=== PATIENT | female | born 1965 | race Caucasian/White ===

== ENCOUNTER 2020-03-07 09:34 | Outpatient (CLI) | payer OTHER, SELFPAY ==
--- NOTE | ~2020-03-07 | NM_ITS ---
EXAM: NM gastric emptying study DATE: 03/07/2020 14:25 INDICATION: Nausea and vomiting. TECHNIQUE: A gastric emptying study was performed using the methodology of Nayely SHERWOOD, et al. J Nucl Med 2007; 48:568-572. The patient was given a meal consisting of 2 scrambled eggs labeled with 1 mCi Tc-99m sulfur colloid, 2 slices of toast, two packages of jam, and approximately 120 mL of water. Si multaneous anterior and posterior 1-min images of the abdomen were obtained with the patient supine a t multiple time points over a total period of 4 hours. The geometric mean of anterior and posterior v iews was determined, and the percentage retention was calculated for each time point. COMPARISON: None. FINDINGS: Gastric retention of the radiotracer-labeled meal was 86%, 68%, and 43% at the 1-hour, 2-h our, and 4-hour time points, respectively. With this technique, apparent rapid gastric emptying is flores ggested by <30% gastric retention at 1 hour. Delayed gastric emptying is defined by gastric retention of >90% at 1 hour, >60% retention at 2 hours, or >10% retention at 4 hours. IMPRESSION: 1. Delayed gastric emptying. Reviewed, dictated and finalized at location A.
== END 2020-03-07 09:35 | disposition home or self-care (01) ==
PROVIDERS: Visit Provider Internal Medicine Gastroenterology
DX: R11.2 Nausea with vomiting, unspecified (principal); K30 Functional dyspepsia
CPT/HCPCS: 78264; A9541

== ENCOUNTER 2025-09-17 18:42 | Emergency (ER) | payer OTHER, SELFPAY ==
[2025-09-17 18:48] VITALS: BP 133/78; PULSE 88; RESP 16; TEMP 37.3; O2SAT 95
--- OUTSIDE RECORDS SUMMARY | 2025-09-17 18:48 | XMS_ITS | Data Portability ---
Author Organization [place] [facility], Main Office Address [address] [place] [address] Care Team Providers Care Radiology Supervisor Name Role Phone GIOVANA JO Referring Provider [phone] Assessment No assessment recorded. Plan of Treatment Reminders Order Date Submit Date Provider Last Modified By Organization Details Last Modified Time Details Appointments None recorded. Lab None recorded. Referral endocrinol ogy referral 2022 023 NORMA Reardon MD, [address],, [facility] [address], [place], [address], 3 17:45:23 Procedures None recorded. Surgeries None recorded. Imaging None recorded. Medication Orders Jardiance 25 mg tablet 2022 023 [facility], [address] [place] [address], [address], 3 17:34:23 glimepirid e 2 mg tablet 2022 023 [facility], [address] [place] [address], [address], 3 17:34:23 pioglitazo ne 30 mg tablet 2022 023 [facility], [address] [place] [address], [address], 3 17:34:47 Tresiba FlexTouch U-200 insulin 200 unit/mL (3 mL) subcutaneo us pen 2022 023 [facility], [address] [place] [address], [address], 3 17:35:55 Patient TargetsNo targets recorded. Patient InstructionsNo instructions recorded. Reason for Referral Endocrinology Referral for U ncontrolled type 2 diabetes mellitus Referring Physician: Lidia Epperson, Endocrinology, Encounter Date: 05/01/2023 Results Created Date Observation Date Name Description Value Unit Range Abnormal Flag Note LastModifiedBy Organization Detail LastModifiedTime Result Notes None recorded. Problems Name Problem SNOMED Code Status Onset Date Resolution Date Notes Provider Name and Address Organization Details Recorded Time Type 2 diabetes mellitus 28119231 Active 2017 Not Available [facility] 3 20:19:15 Uncontrolled type 2 diabetes mellitus 763564655 Active 2021 Not Available [facility] 3 20:19:15 Type 2 diabetes mellitus without complication 785195396 Active 2021 Not Available [facility] 3 20:19:15 Vitamin D deficiency 86351702 Active 2021 Not Available [facility] 3 20:19:15 Dyslipidemia 405236889 Active 2021 Not Available [facility] 3 20:19:15 Well controlled type 2 diabetes mellitus 417994218 Active 2022 Lidia Epperson MD [address] [place] [address], [phone] , [facility] [employer] [facility] 3 13:23:31 Problem Notes None recorded. Medical Equipment None Reported. Allergies Allergen ID Allergen Name Allergen Category Reaction Reaction Severity Criticality Documentation Date Start Date Code Code System Note Provider Name and Address Organization Details Recorded Time 38942 Product containin g penicilli n (product) medicatio n Not available Not available Not available 11/19/2022 09047 8001 SNOMED Not Available [facility] 3 20:20:22 Medications Name Sig Start Date Stop Date Status Note LastModified by Organization Details LastModified Time fluconazole 100 mg tablet 10/04 completed Not Available Not Available Not Available atorvastati n 40 mg tablet 06/18 completed Not Available Not Available Not Available atorvastati n 80 mg tablet active Not Available Not Available Not Available fluconazole 150 mg tablet 10/04 completed Not Available Not Available Not Available benzonatate 200 mg capsule 10/04 completed Not Available Not Available Not Available Balbir Levi 28 gauge 10/04 completed Not Available Not Available Not Available lovastatin 40 mg tablet 10/04 completed Not Available Not Available Not Available sertraline 100 mg tablet active Not Available Not Available Not Available clobetasol 0.05 % topical cream 10/04 completed Not Available Not Available Not Available metronidazo le 500 mg tablet 10/04 completed Not Available Not Available Not Available sulfamethox azole 800 mg-trimetho prim 160 mg tablet TAKE 1 TABLET BY MOUTH TWICE DAILY FOR 7 DAYS 10/04 completed Not Available Not Available Not Available omeprazole 40 mg capsule,del ayed release active Not Available Not Available Not Available glimepiride 2 mg tablet Take 2 tablets twice a day by oral route before meals for 90 days. active Not Available Not Available No t Available glimepiride 1 mg tablet Take 1 tablet twice a day by oral route before meals for 30 days. 06/02 completed Not Available Not Available Not Available ciprofloxac in 0.3 % eye drops active Not Available Not Available No t Available meclizine 25 mg tablet 10/04 completed Not Available Not Available Not Available benzonatate 100 mg capsule 06/18 completed Not Available Not Available Not Available nortriptyli ne 10 mg capsule 10/04 completed Not Available Not Available Not Available tacrolimus 0.1 % topical ointment active Not Available Not Available Not Available glimepiride 4 mg tablet 06/18 completed Not Available Not Available Not Available losartan 25 mg tablet active Not Available Not Available No t Available omeprazole 20 mg capsule,del ayed release 10/04 completed Not Available Not Available Not Available hydrochloro thiazide 25 mg tablet active Not Available Not Available No t Available ergocalcife rol (vitamin D2) 1,250 mcg (50,000 unit) capsule Take 1 capsule every week by oral route in the morning for 90 days. active Not Available Not Available No t Available budesonide DR - ER 3 mg capsule,del ayed,extend ed release 01/14 /2022 completed Not Available Not Available Not Available lovastatin 20 mg tablet 03/28 completed Not Available Not Available Not Available methylpredn isolone 4 mg tablets in a dose pack 10/04 completed Not Available Not Available Not Available albuterol sulfate HFA 90 mcg/actuati on aerosol inhaler INHALE 2 PUFFS BY MOUTH EVERY 4 HOURS NEEDED active Not Available Not Available No t Available pioglitazon e 30 mg tablet Take 1 tablet every day by oral route in the morning for 90 days. active Not Available Not Available No t Available spironolact one 50 mg tablet Take 1 tablet every day by oral route in the morning for 30 days. active Not Available Not Available No t Available calcipotrie ne 0.005 % topical ointment active Not Available Not Available Not Available Antifungal (miconazole ) 2 % topical cream APPLY TO THE AA BID IN THE MORNING AND EVENING 06/18 completed Not Available Not Available Not Available clobetasol 0.05 % shampoo 10/04 completed Not Available Not Available Not Available nitrofurant oin monohydrate /macrocryst als 100 mg capsule 10/04 completed Not Available Not Available Not Available hydrochloro thiazide 08/02 completed Not Available Not Available Not Available FreeStyle Lite Meter kit UTD 10/04 completed Not Available Not Available Not Available FreeStyle Lite Strips 10/04 completed Not Available Not Available Not Available Lantus Solostar U-100 Insulin 100 unit/mL (3 mL) subcutaneou s pen 08/02 completed Not Available Not Available Not Available Lite Touch Insulin Pen Tensed 31 gauge x 5/16 active Not Available Not Available Not Available Otezla 30 mg tablet active Not Available Not Available No t Available Tanzeum 50 mg/0.5 mL subcutaneou s pen injector 08/02 completed Not Available Not Available Not Available Jardiance 10 mg tablet AT THE START OF THERAPY TAKE 1 TABLET DAILY IN THE MORNING FOR 7 DAYS THEN INCREASE TO 25 MG TABLET DAILY THEREAFTE R 10/04 completed Not Available Not Available Not Available Jardiance 25 mg tablet TAKE 1 TABLET BY MOUTH EVERY DAY IN THE MORNING 2022 active Not Available Not Available Not Avai lable Trulicity 1.5 mg/0.5 mL subcutaneou s pen injector INJECT 1.5 MG (0.5 ML) UNDER THE SKIN EVERY WEEK WITH A MEAL 06/18 completed Not Available Not Available Not Available Trulicity 0.75 mg/0.5 mL subcutaneou s pen injector Inject 0.5 mL every week by subcutane ous route with meals for 30 days. 08/02 completed Not Available Not Available Not Available Tresiba FlexTouch U-200 insulin 200 unit/mL (3 mL) subcutaneou s pen Inject 40 units every day by subcutane ous route at bedtime for 90 days. 2022 active Not Available Not Available Not Avai lable Duobrii 0.01 %-0.045 % lotion active Not Available Not Available Not Available FreeStyle Alis 2 Sensor kit active Not Available Not Available N ot Available Trulicity 3 mg/0.5 mL subcutaneou s pen injector 10/04 completed Not Available Not Available Not Available Mounjaro 2.5 mg/0.5 mL subcutaneou s pen injector Inject 2.5 mg every week by subcutane ous route for 28 days. active Not Available Not Available No t Available Vitals Date Recorded Body height Body mass index (BMI) Body weight Heart rate Systolic And Diastolic Provider Name and Address Organization Details Last Updated DateTime 05/01/2023 162.56 cm 34.5 kg/m2 52491.78 g 74 /min 128/78 mm[Hg] Tasia Leroy [place] [facility] [place] [facility] [facility] 05/01/2023 17:06:24 Date Recorded Body mass index (BMI) Body height Oxygen saturation Heart rate Body temperature Body weight Systolic And Diastolic Provider Name and Address Organization Details Last Updated DateTime 2 33.8 kg/m2 162.56 cm 98 % 66 /min 98 [degF] 90801.7 g 105/75 mm[Hg] Not Available [facility] 3 20:19:05 Date Recorded Body mass index (BMI) Body height Oxygen saturation Heart rate Body temperature Body weight Systolic And Diastolic Provider Name and Address Organization Details Last Updated DateTime 1 34.3 kg/m2 162.56 cm 92 % 74 /min 98 [degF] 96997.4 7 g 120/82 mm[Hg] Not Available [facility] 20:19:05 Social History Question Answer Notes LastModified by Organizat ion Details LastModified Time Tobacco Smoking Status Former Smoker Not Available [facility] 11/19/2022 20:18:40 Do You Have An Advance Directive? No [id number] Information not available 11/19/2022 What Is Your Level Of Caffeine Consumption? Moderate [id number] Information not available 11/19/2022 In The 14 Days Before Symptom Onset, Have You Had Close Contact With A Laboratory-confirm ed COVID-19 While That Case Was Ill? No [id number] Information not available 11/19/2022 In The 14 Days Before Symptom Onset, Have You Had Close Contact With A Person Who Is Under Investigation For COVID-19 While That Person Was Ill? No [id number] [id number] Information not available 11/19/2022 What Type Of Diet Are You Following? REGULAR [id number] Information not available 11/19/2022 What Is The Highest Grade Or Level Of School You Have Completed Or The Highest Degree You Have Received? [id number] [id number] Information not available 11/19/2022 When Did You Quit Smoking? 6-10yearssinc elastcigarett e [id number] Information not available 11/19/2022 Do You Have A Medical Power Of Manager Spa? No [id number] Information not available 11/19/2022 What Is Your Relationship Status? [id number] Information not available 11/19/2022 Do You Use Your Seat Belt Or Car Seat Routinely? Yes [id number] 1301 Information not available 11/19/2022 Have You Recently Traveled Abroad? No [id number] Information not available 11/19/2022 Do You Have Any Dietary Restrictions? No [id number] Information not available 11/19/2022 Sex: Female Functional Status Question Answer Note LastModified by Organizat ion Details LastModified Time Do you use any illicit or recreational drugs? No [id number] Information not available 11/19/2022 What is your level of alcohol consumption? 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 [id number] Information not available 11/19/2022 Family History Relationship Description Onset Age of this Age Resolved Age Notes LastModified by Organization Details LastModified Time Mother Malignant neoplasm of breast [id number] Not available 11/19/2022 20:18:46 Father Kidney disease [id number] Not available 11/19/2022 20:18:46 Medical History Condition Response DIABETES, TYPE Y Gynecological HistoryNo gynecological history recorded. Obstetrics History GPAL:G 0 P 0 0 0 0 Past Encounters Encounter ID Performer Location Encounter Start Date Encounter Closed Date Diagnosis/Indication Diagnosis SNOMED-CT Code Diagnosis ICD10 Code Diagnosis IMO Codes Diagnosis Note [id number] Lidia Epperson MD [facility] [place] [address] [place] [address] 06/18/2021 00:00:00 06/18/2021 18:26:42 [id number] Lidia Epperson MD [facility] [place] [address] [place] [address] 10/04/2021 00:00:00 10/04/2021 17:26:01 [id number] [facility] [place] [address] [place] [address] 06/02/2022 00:00:00 06/02/2022 18:33:28 [id number] Lidia Epperson MD [facility] [place] [address] [place] [address] 05/01/2023 16:55:59 05/04/2023 14:13:36 Uncontrolled type 2 diabetes mellitus 080313867 E11.65 A1C of 8.9% down from 9.2%- she started mounjaro but this is aggrevatin g her fullness/n ausea due to hx of gastropare sis- she was advised to stop mounjaro. She cannot tolerate metformin due to GI upset- she was encouraged to consider an insulin pattern duplicator - actos being really the only optional therapy aside from going on natural pattern duplicator s. She has no hx of CHF- will trial on 30 mg daily. She is aware to look for leg swelling and shortness of breath as possible side effects and reach out to notify us. Restart jardiance and glimepirid e scale twice daily along with tresiba 40 units at bedtime and she is aware of self titration to maintain fasting glucose of 90-120 mg/dL. Refill freestyle alis 2 as patient compliant and using on consistent basis. Refer for endocrinol ogy due to my resignatio n. Spent up to 30 minutes preparing to see the patient (eg, review of tests), obtaining and/or reviewing separately obtained history, performing a medically appropriat e examinatio n and evaluation , counseling and educating the patient, ordering medication s, tests, along with documentin g clinical informatio n in the electronic health record, independen tly interpreti ng results and communicat ing results to the patient. Patient can be followed by PCP - she/he is aware of my resignatio n and last day of July 03. If needed his/her PCP can refer patient to another endocrinol ogist in the area. All questions /concerns answered and refills necessary at visit today. Health Concerns Section Related Observation LastModified by Organization Detai ls LastModified Time None Recorded Concern Status LastModified by Organization Details LastModified Time None Recorded Advance Directives Directive N: Payers Insurance Date Sequence Insurance Name Policy Number Policy Santana Covered Member ID Santana Member ID Guarantor Name 10/02/2023 1 [facility] Bonnie Brandt [id number] Bonnie Brandt Notes Date Note Type Note Provider Name and Address Organization Details Recorded Time 05/01/2023 text/html ROS as noted in the HPI 57 yo female comes in for follow up in management of uncontrolled type 2 DM (A1C of 8.9% down from 9.2%), dyslipidemia last seen in May 2022 at that time we had patient continue on tresiba 40 units at bedtime and patient aware to increase by 4 units every 4 days until fasting glucose 90-130 mg/dL. We had patient continue glimepiride 2 mg BID, jardiance 25 mg daily, and freestyle cgm. We started mounjaro. we continued statin and vitamin D 3 3000 IU daily. She was given mounjaro at her last visit- she is concerned to take this due to gastroparesis and she gets sick from these medications. She started taking the mounjaro 4 weeks ago. She has more fullness and nausea. She stopped the jardiance and her sugars are running 97% in range and 3% high. She was initially on glimepiride in morning, tresiba at night and jardiance- this was not helping her glucose - her sugars would be over 300 mg/dL and closer to 400 mg/dL. She stopped the jardiance and started mounjaro 2.5 mg weekly. She cannot take metformin as this made her severely ill. She had gastric study close to 3 years ago confirming gastroparesis. labs from 04/20/23:146/220/43/6 7a1c 8.9%TSH of 2.110 uIU/mlFT4 of 1.05 ng/dLglucose 137 mg/dLLFT normalCr normalmicroalb not provided Lidia Epperson MD [address] [facility], [facility] [address], [place], [address], [place] [facility] 05/01/2023 18:00:55 OBGyn Episode No OBEpisode recorded.
--- OUTSIDE RECORDS SUMMARY | 2025-09-17 18:48 | XMS_ITS | Encounter Summary ---
Author Organization [facility] Address [address] [place] [address] Care Team Providers Care Heat Treatment Technician Name Role Phone Femi Christina DO Primary Care Provider + Encounter Details Date Type Department Care Team (Late Contact Info) Description 09/25/2023 MyChart Message Enc [facility] Family & Internal Medicine [facility] [address] [place] [address] Femi Christina DO [address] [place], [place] [id number] Referral. Social History Tobacco Use Types Packs/Day Years Used Date Smoking Tobacco: Former Cigarettes 1 4 1 09/27/2010 - 07/28/2015 Smokeless Tobacco: Never Alcohol Use Standard Drinks/Week Comments Not Currently 0 (1 standard drink = 0.6 oz pur e alcohol) AUDIT-C Answer Date Recorded Frequency of Alcohol Consumption Never 07/28/2019 Average Number of Drinks Not on file 019 Frequency of Binge Drinking Not on file 03/2019 PHQ-2 Answer Date Recorded Patient Health Questionnaire-2 Score 0 11/05/2022 Comments No Sex and Gender Information Value Date Recorded Sex Assigned at Female 02/08/2025 3:21 PM CDT Legal Sex Female 11:28 AM GEOLOGICAL SPECIALIST Gender Identity Female 02/08/2025 3:21 PM CDT Sexual Orientation Not on file 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 Family & Internal Medicine - [place] [address] [place] [address] Femi Christina DO [facility] [place] [address] documented as of this encounter Visit Diagnoses Not on filedocumented in this encounter Additional Health Concerns Assessment Noted Time PHQ-9 Depression Total Score: 0 11/05/19 23 2:23 PM GEOLOGICAL SPECIALIST documented as of this encounter Care Teams Heat Treatment Technician Relationship Specialty Start Date End Date Femi Christina DO [address] [place] [address] PCP - General FAMILY PRACTICE 07/28/19 documented as of this encounter
--- OUTSIDE RECORDS SUMMARY | 2025-09-17 18:48 | XMS_ITS | Encounter Summary ---
Author Organization [facility] Address [address] [place] [address] Care Team Providers Care Wire Steward Name Role Phone Femi Christina DO Primary Care Provider + Encounter Details Date Type Department Care Team (Late Contact Info) Description 01/30/2020 Vidablehart Message Enc [facility] Internal [facility] [address] [place] [address] Femi Christina DO [facility] [place], [place] [phone] Referral Request Social History Tobacco Use Types Packs/Day Years Used Date Smoking Tobacco: Former Cigarettes 1 4 1 09/27/2010 - 07/28/2015 Smokeless Tobacco: Never Alcohol Use Standard Drinks/Week Comments No 0 (1 standard drink = 0.6 oz pur e alcohol) AUDIT-C Answer Date Recorded Frequency of Alcohol Consumption Never 07/28/2019 Average Number of Drinks Not on file 019 Frequency of Binge Drinking Not on file 03/2019 PHQ-2 Answer Date Recorded PHQ-2 Score 0 09/29/2019 Comments Unknown Sex and Gender Information Value Date Recorded Sex Assigned at Female 02/08/2025 3:21 PM CDT Legal Sex Female 11:28 AM OTORHINOLARYNGOLOGIST Gender Identity Female 02/08/2025 3:21 PM CDT Sexual Orientation Not on file documented as of this encounter Plan of Treatment Upcoming Encounters Date Type Department Care Team (Late Contact Info) Description 02/27/2026 9:00 AM CDT Office Visit [facility] & Internal Medicine - [place] [id number] [place] [address] Femi Christina DO [address] [place] [address] documented as of this encounter Visit Diagnoses Not on filedocumented in this encounter Additional Health Concerns Assessment Noted Time PHQ-9 Depression Total Score: 2 09/29/19 20 10:29 AM OTORHINOLARYNGOLOGIST documented as of this encounter Care Teams Wire Steward Relationship Specialty Start Date End Date Femi Christina DO [address] [place] [address] PCP - General FAMILY PRACTICE 07/28/19 documented as of this encounter
--- OUTSIDE RECORDS SUMMARY | 2025-09-17 18:48 | XMS_ITS | Encounter Summary ---
Author Organization [facility] Address [address] [place] [address] Care Team Providers Care Convenience Recycle Center Tech Name Role Phone Femi Christina DO Primary Care Provider + Encounter Details Date Type Department Care Team (Late st Contact Info) Description 10/31/2022 Zoom Telephonicst Message Enc [facility] Family & Internal Medicine [facility] [address] [place] [phone] Femi Christina DO [address] [place], [place] [phone] Labs. 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 No other labs needed; will obtain labs prior to appointment later this year. CTOR SPORTS documented in this encounter Plan of Treatment Upcoming Encounters Date Type Department Care Team (Late st Contact Info) Description 02/27/2026 9:00 AM CDT Office Visit [facility] Family & Internal Medicine - [address] [phone] Femi Christina DO [address] [place] [address] documented as of this encounter Visit Diagnoses Not on filedocumented in this encounter Additional Health Concerns Assessment Noted Time PHQ-9 Depression Total Score: 0 04/04/20 21 9:33 AM CDT documented as of this encounter Care Teams Convenience Recycle Center Tech Relationship Specialty Start Date End Date Femi Christina DO [address] [place] [address] PCP - General FAMILY PRACTICE 07/28/19 documented as of this encounter
--- OUTSIDE RECORDS SUMMARY | 2025-09-17 18:48 | XMS_ITS | Encounter Summary ---
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 No / Unsure 05/01/2021 9:06 AM CDT documented as of this encounter Plan of Treatment Upcoming Encounters Date Type Department Care Team (Late st Contact Info) Description 02/27/2026 9:00 AM CDT Office Visit [facility] Family & Internal Medicine [address] [phone] Femi Christina DO [address] [place] [address] documented as of this encounter Visit Diagnoses Not on filedocumented in this encounter Additional Health Concerns Assessment Noted Time PHQ-9 Depression Total Score: 0 04/04/20 21 9:33 AM CDT documented as of this encounter Care Teams Inspector Boiler Relationship Specialty Start Date End Date Femi Christina DO [address] [place] [address] PCP - General FAMILY PRACTICE 07/28/19 documented as of this encounter
--- OUTSIDE RECORDS SUMMARY | 2025-09-17 18:48 | XMS_ITS | Encounter Summary ---
Author Organization [facility] Address [address] [place] [address] Care Team Providers Care Back Wedger Name Role Phone Femi Christina DO Primary Care Provider + Encounter Details Date Type Department Care Team (Late st Contact Info) Description 04/14/2022 PTS Consultinghart [address] Enc [facility] Family & Internal Medicine [facility] [address] [place] [phone] Femi Christina DO [address] [place], [place] [phone] Medication and labs. 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 Can fill for 1 month, but that is all as pt hasn't been seenin almost a year. documented in this encounter Plan of Treatment Upcoming Encounters Date Type Department Care Team (Late st Contact Info) Description 02/27/2026 9:00 AM CDT Office Visit [facility] Family & Internal Medicine - [address] [phone] Femi Christina DO [facility] [place] [address] documented as of this encounter Visit Diagnoses Not on filedocumented in this encounter Additional Health Concerns Assessment Noted Time PHQ-9 Depression Total Score: 0 04/04/20 21 9:33 AM CDT documented as of this encounter Care Teams Back Wedger Relationship Specialty Start Date End Date Femi Christina DO [address] [place] [address] PCP - General FAMILY PRACTICE 07/28/19 documented as of this encounter
--- OUTSIDE RECORDS SUMMARY | 2025-09-17 18:48 | XMS_ITS | Encounter Summary ---
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
--- OUTSIDE RECORDS SUMMARY | 2025-09-17 18:48 | XMS_ITS | Encounter Summary ---
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 Toro with a new one for Dr. Groves for later date if this is able to be done. documented in this encounter Plan of Treatment Upcoming Encounters Date Type Department Care Team (Late st Contact Info) Description 02/27/2026 9:00 AM CDT Office Visit [facility] Family & Internal Medicine - [place] [address] [place] [address] Femi Christina DO [address] [place] [address] documented as of this encounter Visit Diagnoses Not on filedocumented in this encounter Additional Health Concerns Assessment Noted Time PHQ-9 Depression Total Score: 2 09/29/19 20 10:29 AM HEAD CONTROL CLERK documented as of this encounter Care Teams Route Jumper Relationship Specialty Start Date End Date Femi Christina DO [address] [place] [address] PCP - General FAMILY PRACTICE 07/28/19 documented as of this encounter
--- OUTSIDE RECORDS SUMMARY | 2025-09-17 18:48 | XMS_ITS | Encounter Summary ---
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 No / Unsure 04/04/2021 9:06 AM CDT documented as of this encounter Plan of Treatment Upcoming Encounters Date Type Department Care Team (Late st Contact Info) Description 02/27/2026 9:00 AM CDT Office Visit [facility] Family & Internal Medicine [address] [phone] Femi Christina DO [address] [place] [phone] documented as of this encounter Visit Diagnoses Not on filedocumented in this encounter Additional Health Concerns Assessment Noted Time PHQ-9 Depression Total Score: 0 04/04/20 21 9:33 AM CDT documented as of this encounter Care Teams Orchard Worker Relationship Specialty Start Date End Date Femi Christina DO [address] [place] [address] PCP - General FAMILY PRACTICE 07/28/19 documented as of this encounter
--- OUTSIDE RECORDS SUMMARY | 2025-09-17 18:48 | XMS_ITS | Clinical Summary ---
Author Organization [facility] Address [address] [place] [address] Care Team Providers Care Hospital Clinic Assistant Name Role Phone Femi Christina Bing CASE Primary Care Provider + Allergies Active Allergy Reactions Criticality Noted Date Comments Metformin Diarrhea Low 07/31/2017 Penicillins Nausea and Vomiting,Nausea Only,Rash,Vomiting,Unkno wn Medium 01/28/2017 Reaction: rash, nausea, vomiting, , Medications Lancets (FREESTYLE) lancetsIndications :Type 2 diabetes mellitus without complication, with long-term current use of insulin ([facility]/HCC HHS/HCC) 1 each by Other route 2 (two) times daily with meals. 200 each 1 05/16/20 20 Active Insulin Pen Needle (PEN NEEDLES) 31G X 5 MM Misc BD Ultra-Fine Short Pen Needle 31 gauge x 5/16 Active Blood Glucose Monitoring Suppl (FREESTYLE LITE) Device FreeStyle Lite Meter kit UTD Active DUOBRII 0.01-0.045 % Lotion 07/27/20 20 Active clobetasol 0.05 % cream Active Clobetasol Propionate 0.05 % Shampoo Active calcipotriene 0.005 % ointment Act lynne aspirin EC (ECOTRIN) 81 MG tablet Take 1 tablet (81 mg total) by mouth daily. Active JARDIANCE 25 MG tabletIndications: Uncontrolled type 2 diabetes mellitus with hyperglycemia (CMS/HCC HHS/HCC) TAKE 1 TABLET DAILY 90 tablet 1 01/16/20 23 Active insulin degludec (TRESIBA) 200 UNIT/ML injection (PEN) Inject 40 Units into the skin daily. 01/18/20 24 Active HUMIRA, 2 PEN, 40 MG/0.8ML injection Inject 0.8 mLs (40 mg total) into the skin every 14 (fourteen) days. 08/06/20 24 Active metoclopramide (REGLAN) 10 MG tabletIndications: Gastroparesis Take 0.5 tablets (5 mg total) by mouth 4 (four) times daily. 120 tablet 09/30/19 25 Active Continuous Glucose Sensor (FREESTYLE MARAH 3 SENSOR) MiscIndications:Un controlled type 2 diabetes mellitus with hyperglycemia (CMS/HCC HHS/HCC),Diabetic gastroparesis (CMS/HCC HHS/HCC) Check blood sugars before emeals and fasting daily as well as prn 6 each 01/21/20 25 Active glimepiride (AMARYL) 4 MG tablet Take 1 tablet (4 mg total) by mouth 2 (two) times daily. 09/23/19 25 Active tacrolimus (PROTOPIC) 0.1 % ointment tacrolimus 0.1 % topical ointment Active omeprazole (PRILOSEC) 40 MG capsuleIndications :Gastroesophageal reflux disease, unspecified whether esophagitis present TAKE 1 CAPSULE DAILY 90 capsule 3 04/11/20 25 Active losartan (COZAAR) 25 MG tabletIndications: Essential hypertension TAKE 1 TABLET DAILY 90 tablet 3 05/24/20 25 Active sertraline (ZOLOFT) 100 MG tabletIndications: Current mild episode of major depressive disorder without prior episode TAKE 1 TABLET DAILY 90 tablet 3 07/03/20 25 Active atorvastatin (LIPITOR) 80 MG tabletIndications: Hyperlipidemia, unspecified hyperlipidemia type TAKE 1 TABLET NIGHTLY AT BEDTIME 90 tablet 3 08/01/20 25 Active hydroCHLOROthiazid e (HYDRODIURIL) 25 MG tabletIndications: Primary hypertension TAKE 1 TABLET EVERY MORNING 90 tablet 3 08/01/20 25 Active Continuous Glucose Sensor (FREESTYLE MARAH 3 SENSOR) Misc Change sensor every 15 days 02/21/20 25 Active Continuous Blood Gluc Dyeing Machine Back Tender (FREESTYLE MARAH 3 READER) DeviceIndications: Uncontrolled type 2 diabetes mellitus with hyperglycemia (CMS/HCC HHS/HCC),Diabetic gastroparesis (CMS/HCC HHS/HCC) Check blood sugars before meals and fasting daily as well as prn 1 each 1 10/16/19 24 025 Discontin ued(Dupli naz Med) semaglutide (OZEMPIC, 0.25 OR 0.5 MG/DOSE,) 2 MG/3ML injection (PEN)Indications:D iabetes Mellitus Inject 0.25 mg into the skin every 7 days. Indications: Diabetes 3 mL 02/09/20 25 025 Discontin ued(Error ) Active Problems Problem Noted Date Diagnosed Date Class 2 severe obesity with serious comorbidity and body mass index (BMI) of 35.0 to 35.9 in adult 11/03/2023 Overview (02/05/2024): Last Assessment & Plan: Counseled on healthy lifestyle habits To work on healthy fat loss goal Dyslipidemia 06/02/2022 Vitamin D deficiency 05/08/2022 Uncontrolled type 2 diabetes mellitus 05/05/2022 Diabetic gastroparesis 04/04/2021 Psoriasis 07/28/2019 Hypertension associated with type 2 diabetes josselyn litus 09/24/2014 Overview (02/05/2024): Overview: Hypertension Hypertension Last Assessment & Plan: Chronic, well controlled Continue losartan and hydrochlorothiazide Type 2 diabetes mellitus wit hout complication, with long-term current use of insulin 02/04/2014 Overview (07/28/2019): Overview: DMII WO CMP NT ST UNCNTR Premenstrual tension syndrome 02/04/2014 Overview (04/04/2021): PMS (premenstrual syndrome) Pure hypercholesterolemia 02/04/2014 Overview (04/04/2021): PURE HYPERCHOLESTEROLEM Iron deficiency anemia, unspecified 08/03/2013 Hyperlipidemia associated with type 2 diabetes m willis 04/06/2013 Overview (02/05/2024): Overview: Hyperlipidemia Hyperlipidemia Last Assessment & Plan: Continue statin therapy GERD (gastroesophageal reflux disease) Resolved Problems Problem Noted Date Diagnosed Date Resolved Date Depression, unspecified depression type 07/28/2019 04/04/2021 History of nicotine dependence 07/19/2013 04/04/2021 Encounters Date Type Department Care Team Description 09/11/2025 [employer] Message Enc [facility] Multispecialty Care - [address] [place] [phone] Carmela, [facility] Provider GI Referral 08/31/2025 Scan [facility] HEALTH INFO SRVCS Scanned, [facility] 08/29/2025 9:20 AM PRODUCT SAFETY TEST ENGINEER Office Visit [facility] Family Internal [address] [phone] Femi Christina DO Diabetes (3 month follow up. No concerns. ) 08/29/2025 Scan MG HEALTH INFO SRVCS Scanned, [facility] 08/29/2025 Telephone [facility] Family Internal [address] [phone] Femi Christina DO Lab Order 08/29/2025 Travel 07/14/2025 Results Follow-Up [facility] Internal [address] [phone] Herlinda Kramer H, APNP ALBUMIN URINE RANDOM W/CREATININE, CBC W/DIFF AUTOMATED, COMPREHENSIVE METABOLIC PANEL, Additional followed-up results: 3 07/11/2025 Telephone [facility] Family Internal [address] [phone] Femi Christina DO Lab Order from Last 3 Months Immunizations Immunization Administration Dates Next Due Pneumococcal (Pneumovax 23) 07/28/2019 Tdap (Generic) 01/25/2015 Family History Medical History Relation Comments Cancer Father skin Hypertension Father Kidney Disease Father He is currently doing dialysis Arthritis Mother Cancer Mother breast Early Hearing Loss Mother Hypertension Mother Relation Status Comments Father Mother Social History Tobacco Use Types Packs/Day Years Used Date Smoking Tobacco: Former Cigarettes 1 4 1 09/27/2010 - 07/28/2015 Smokeless Tobacco: Never Tobacco Cessation:Counseling Given: Yes Alcohol Use Standard Drinks/Week Comments Not Currently 0 (1 standard drink = 0.6 oz pur e alcohol) AUDIT-C Answer Date Recorded Frequency of Alcohol Consumption Never 07/28/2019 Average Number of Drinks Not on file 019 Frequency of Binge Drinking Not on file 03/2019 PHQ-2 Answer Date Recorded Patient Health Questionnaire-2 Score 0 02/08/2025 Comments No Sex and Gender Information Value Date Recorded Sex Assigned at Female 02/08/2025 3:21 PM CDT Legal Sex Female 11:28 AM PRODUCT SAFETY TEST ENGINEER Gender Identity Female 02/08/2025 3:21 PM CDT Sexual Orientation Not on file 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 Not on file Not on file Last Filed Vital Signs Vital Sign Reading Time Taken Comments Blood Pressure 110/64 08/29/2025 9:46 AM PRODUCT SAFETY TEST ENGINEER Pulse 89 08/29/2025 9:46 AM PRODUCT SAFETY TEST ENGINEER Temperature 36.3 C (97.4 F) 08/29/2025 9:46 AM PRODUCT SAFETY TEST ENGINEER Respiratory Rate 16 08/29/2025 9:46 AM PRODUCT SAFETY TEST ENGINEER Oxygen Saturation 94% 08/29/2025 9:46 AM PRODUCT SAFETY TEST ENGINEER Inhaled Oxygen Concentration - - Weight 96 kg (211 lb 11.2 oz) 08/29/2025 9:46 AM PRODUCT SAFETY TEST ENGINEER Height 161.3 cm (5' 3.5) 08/29/2025 9:46 AM PRODUCT SAFETY TEST ENGINEER Body Mass Index 36.91 08/29/2025 9:46 AM PRODUCT SAFETY TEST ENGINEER Plan of Treatment Upcoming Encounters Date Type Department Care Team (Late st Contact Info) Description 02/27/2026 9:00 AM CDT Office Visit [facility] Family & Internal Medicine - [address] [phone] Femi Christina, [address] [place] [phone] Health Maintenance Due Date Last Done Comments Cervical Cancer Screening Pap Smear (Age 30 to 64) Every 3 Years 1967 Hepatitis B Vaccines (1 of 3 - 19+ 3-dose series) 1986 Cervical Cancer Screening Pap with HPV Testing (Age 30 to 64) Every 5 Years 1997 Mammogram Screening 2007 Annual Physical 07/28/2020 07/28/2019 Colorectal Cancer Screening Colonoscopy (10 Years) 11/27/2023 11/26/2018 Hemoglobin A1C 08/11/2025 02/08/2025, 07/22, 02/05/2024, Additional history exists Diabetes: Retinopathy Eye Exam 09/29/2025 Postponed from 1985 (Awaiting Documentation) Cervical Cancer Screening with HPV 02/08/2026 Postponed from 1997 (Going to Outside Clinic) DTaP, Tdap and Td Vaccines (2 - Td or Tdap) 02/08/2026 01/25/2015 Postponed from 01/25/2025 (Patient Refused) Pneumococcal Vaccine: 50+ Years (2 of 2 - PCV) 02/08/2026 07/28/2019 Postponed from 07/28/2020 (Patient Refused) Kidney Health Evaluation 07/13/2026 07/13/2025 Lipid Panel 07/13/2026 07/13/2025, 01/20, 06/24/2023, Additional history exists COVID-19 Vaccine (2 - Faith risk series) 08/29/2026 11/27/2020 Postponed from 12/25/2020 (Patient Refused) Influenza Adult (#1) 2026 Postpon ed from 06/21/2025 (Patient Refused) Zoster Vaccines (1 of 2) 08/29/2026 Pos tponed from 1986 (Going to Outside Clinic) Hepatitis C Completed 06/24/2023 PHQ-2 (Physician [place]) Completed 02/08/2025 Hepatitis A Vaccines Aged Out No long er eligible based on patient's age to complete this topic Meningococcal B Vaccine Aged Out No l onger eligible based on patient's age to complete this topic Meningococcal Vaccine Aged Out No valdemar yash eligible based on patient's age to complete this topic RSV Immunizations Under 20 Months Aged Out No longer eligible based on patient's age to complete this topic Procedures Procedure Name Priority Date/Time Associated Diagnosis Comments COLLECTION VENOUS BLOOD VENIPUNCTURE Routine 08/29/2025 10:00 AM PRODUCT SAFETY TEST ENGINEER Elevated liver enzymes Polycythemia VITAMIN D, 25 OH Routine 07/13/2025 9:00 AM CDT LIPID PANEL Routine 07/13/2025 9:00 AM CDT Type 2 diabetes mellitus with other circulatory complication, with long-term current use of insulin ([facility] HHS/HCC) Hyperlipidemia, unspecified hyperlipidemia type Screening for lipid disorders Screening for endocrine, metabolic and immunity disorder Annual physical exam TSH W/REFLEX Routine 07/13/2025 9:00 AM CDT Type 2 diabetes mellitus with other circulatory complication, with long-term current use of insulin ([facility] HHS/HCC) Hyperlipidemia, unspecified hyperlipidemia type Screening for lipid disorders Screening for endocrine, metabolic and immunity disorder Annual physical exam COMPREHENSIVE METABOLIC PANEL Routine 07/13/2025 9:00 AM CDT Type 2 diabetes mellitus with other circulatory complication, with long-term current use of insulin ([facility] HHS/HCC) Hyperlipidemia, unspecified hyperlipidemia type Screening for lipid disorders Screening for endocrine, metabolic and immunity disorder Annual physical exam CBC W/DIFF AUTOMATED Routine 07/13/2025 9:00 AM CDT Type 2 diabetes mellitus with other circulatory complication, with long-term current use of insulin ([facility] HHS/HCC) Hyperlipidemia, unspecified hyperlipidemia type Screening for lipid disorders Screening for endocrine, metabolic and immunity disorder Annual physical exam ALBUMIN URINE RANDOM W/CREATININE Routine 07/13/2025 9:00 AM CDT Type 2 diabetes mellitus with other circulatory complication, with long-term current use of insulin ([facility]/HCC HHS/HCC) Hyperlipidemia, unspecified hyperlipidemia type Screening for lipid disorders Screening for endocrine, metabolic and immunity disorder Annual physical exam HEMOGLOBIN, GLYCOSYLATED Routine 02/08/2025 Type 2 diabetes mellitus with other circulatory complication, with long-term current use of insulin ([facility]/HCC HHS/HCC) HEPATITIS C ANTIBODY Routine 06/24/2023 1:44 PM CDT Need for hepatitis C screening test COLONOSCOPY GENERIC (SCAN ORDER) 11/26/2018 from Last 3 Months or Most Recently Relevant to Health Maintenance Results * TSH W/REFLEX (07/13/2025 9:00 AM CDT) TSH 2.25 0.40 - 4.50 mIU/L [facility] [place] 07/13/2025 9:00 AM CDT 07/13/2025 9:01 AM CDT Narrative [facility] - 07/14/2025 4:33 AM CDT FASTING:YES FASTING: YES Resulting Agency Comment Performing Organization Information: Site ID: [place] Name: [facility] Address: [address] [place] [address] Director: Salvador Lopez Femi Christina DO LABORATORY Final Re sult [facility] [address] [phone] * ALBUMIN URINE RANDOM W/CREATININE (07/13/2025 9:00 AM CDT) Pathologist [facility] CREATININE RANDOM (U) 136 20 - 275 mg/dL [facility] MICROALBUMIN (U) 0.7 See Note: mg/dL [facility] Comment: Reference Range: Reference Range Not established MICROALB/CREAT 5 <30 mg/g creat [facility] Comment: The ADA defines abnormalities in albumin excretion as follows: Albuminuria Category Result (mg/g creatinine) Normal to Mildly increased <30 Moderately increased 30-299 Severely increased > OR = 300 The ADA recommends that at least two of three specimens collected within a 3-6 month period be abnormal before considering a patient to be within a diagnostic category. URINE SPECIMEN / Unknown 07/13/2025 9:00 AM CDT 07/13/2025 9:01 AM CDT Narrative [facility] [place] - 07/14/2025 4:33 AM CDT FASTING:YES FASTING: YES Resulting Agency Comment Performing Organization Information: Site ID: [id number] Name: [facility] Address: [address] [address] Director: Salvador Lopez MD Femi Christina DO URINE ORDERABLES Final R esult ANGELICA ESPANA ORD[facility] [place] [address] [address], * (ABNORMAL) COMPREHENSIVE METABOLIC PANEL (07/13/2025 9:00 AM CDT) GLUCOSE 151(H) 65 - 99 mg/dL [place] Comment: Fasting reference interval For someone without known diabetes, a glucose value >125 mg/dL indicates that they may have diabetes and this should be confirmed with a follow-up test. BUN 20 7 - 25 mg/dL [place] CREATININE S/P/B 0.97 0.50 - 1.03 mg/dL [place] GFR ESTIMATE 68 > OR = 60 mL/min/1. 73m2 [place] BUN CREATININE RATIO SEE NOTE: 6 - 22 (calc) [place] Comment: Not Reported: BUN and Creatinine are within reference range. SODIUM S/P/B 142 135 - 146 mmol/L [place] POTASSIUM S/P/B 3.5 3.5 - 5.3 mmol/L [place] CHLORIDE S/P/B 102 98 - 110 mmol/L [place] CO2 30 20 - 32 mmol/L [place] CALCIUM S/P/B 9.5 8.6 - 10.4 mg/dL [place] TOTAL PROTEIN S/P/B 7.1 6.1 - 8.1 g/dL [place] ALBUMIN S/P/B 4.6 3.6 - 5.1 g/dL [place] GLOBULIN 2.5 1.9 - 3.7 g/dL (calc) [place] ALBUMIN/GLOBULIN RATIO 1.8 1.0 - 2.5 (calc) [place] BILIRUBIN TOTAL S/P/B 0.5 0.2 - 1.2 mg/dL [facility] [place], [place] ALKALINE PHOSPHATASE S/P/B 66 37 - 153 U/L [facility] [place] AST 20 10 - 35 U/L [place] ALT 33(H) 6 - 29 U/L [place] 07/13/2025 9:00 AM CDT 07/13/2025 9:01 AM CDT Narrative [facility] [place] - 07/14/2025 4:33 AM CDT FASTING:YES FASTING: YES Resulting Agency Comment Performing Organization Information: Site ID: [place] Name: [facility] Address: [facility] [place] [address] Director: Salvador Lopez Femi Christina DO LABORATORY Final Re sult [facility] [address] [address], * (ABNORMAL) LIPID PANEL (07/13/2025 9:00 AM CDT) CHOLESTEROL 164 <200 mg/dL [place] HDL 43(L) > OR = 50 mg/dL [place] TRIGLYCERIDES 235(H) <150 mg/dL [place] Comment: If a non-fasting specimen was collected, consider repeat triglyceride testing on a fasting specimen if clinically indicated. Marysol et al. J. of Clin. Lipidol. 2015;9:129-169. LDL (CALCULATED) 88 mg/dL (calc) [place] Comment: Reference range: <100 Desirable range <100 mg/dL for primary prevention; <70 mg/dL for patients with CHD or diabetic patients with > or = 2 CHD risk factors. LDL-C is now calculated using the Juan Francisco calculation, which is a validated novel method providing better accuracy than the Friedewald equation in the estimation of LDL-C. Vincent BLANCO et al. AMOS. 2013;310(19): 5050-5758 (http://education.Bancore A/S.Fleck/faq/EAZ817) CHOL/HDL RATIO 3.8 <5.0 (calc) [place] NON HDL CHOLESTEROL 121 <130 mg/dL (calc) [place] Comment: For patients with diabetes plus 1 major ASCVD risk factor, treating to a non-HDL-C goal of <100 mg/dL (LDL-C of <70 mg/dL) is considered a therapeutic option. 07/13/2025 9:00 AM CDT 07/13/2025 9:01 AM CDT Narrative [facility] - 07/14/2025 4:33 AM CDT FASTING:YES FASTING: YES Resulting Agency Comment Performing Organization Information: Site ID: [place] Name: [facility] Address: [facility] [place] [address] Director: Salvador Lopez Femi Christina DO LABORATORY Final Re sult Performing Organization Address City/State/[facility] Co de Phone Number [facility] [place] [facility] [address] [address], * (ABNORMAL) CBC W/DIFF AUTOMATED (07/13/2025 9:00 AM CDT) WBC 3.9 3.8 - 10.8 Thousand/u L [place] RBC 5.13(H) 3.80 - 5.10 Million/uL [place] HGB 15.9(H) 11.7 - 15.5 g/dL [place] HCT 47.7(H) 35.0 - 45.0 % [place] MCV 93.0 80.0 - 100.0 fL [place] MCH 31.0 27.0 - 33.0 pg [place] MCHC 33.3 32.0 - 36.0 g/dL [place] Comment: For adults, a slight decrease in the calculated MCHC value (in the range of 30 to 32 g/dL) is most likely not clinically significant; however, it should be interpreted with caution in correlation with other red cell parameters and the patient's clinical condition. RDW 13.1 11.0 - 15.0 % [place] PLT 158 140 - 400 Thousand/u L [place] MPV 10.7 7.5 - 12.5 fL [place] ABS. NEUTROPHILS 2,375 1,500 - 7,800 cells/uL [place] ABS. LYMPHOCYTES 1,084 850 - 3,900 cells/uL [place] ABS. MONOCYTES 312 200 - 950 cells/uL [place] ABS. EOSINOPHILS 90 15 - 500 cells/uL [place] ABS. BASOPHILS 39 0 - 200 cells/uL [place] SEG NEUTROPHILS 60.9 % QUES [place] LYMPHOCYTES 27.8 % [place] MONOCYTES 8.0 % [place] EOSINOPHILS 2.3 % [place] BASOPHILS 1.0 % [place] 07/13/2025 9:00 AM CDT 07/13/2025 9:01 AM CDT Narrative [facility] [place] [facility] - 07/14/2025 4:33 AM CDT FASTING:YES FASTING: YES Resulting Agency Comment Performing Organization Information: Site ID: [place] Name: [facility] Address: [facility] [place] [address] Director: Salvador Lopez Femi Christina DO LABORATORY Final Re sult [facility] [place] [place] [address] [place] [phone], * VITAMIN D, 25 OH (07/13/2025 9:00 AM CDT) VITAMIN D 25 HYDROXY TOTAL S/P/B 91 30 - 100 ng/mL [facility] Comment: Vitamin D Status 25-OH Vitamin D: Deficiency: <20 ng/mL Insufficiency: 20 - 29 ng/mL Optimal: > or = 30 ng/mL For 25-OH Vitamin D testing on patients on D2-supplementation and patients for whom quantitation of D2 and D3 fractions is required, the QuestAssureD(TM) 25-OH VIT D, (D2,D3), LC/MS/MS is recommended: order code 59079 (patients >2yrs). See Note 1 Note 1 For additional information, please refer to http://education.Blitz [employer] Instruments/faq/OIB832 (This link is being provided for informational/ educational purposes only.) 07/13/2025 9:00 AM CDT 07/13/2025 9:01 AM CDT Narrative [facility] [place] - 07/14/2025 4:33 AM CDT FASTING:YES FASTING: YES Resulting Agency Comment Performing Organization Information: Site ID: [place] Name: [facility] Address: [address] [place], [place] [address] [address] Director: Salvador Lopez MD Femi Christina DO LABORATORY Final Re sult Performing Organization Address [facility] Co de Phone Number [facility] [place] [id number] [place] [address] [place] [address], * HEMOGLOBIN, GLYCOSYLATED (02/08/2025) Pathologist [facility] HGB A1C 8.6 % [facility] 02/08/2025 Femi Bing Christina LABORATORY Final Re sult Performing Organization Address [facility] Co de Phone Number [facility] [address] [place] [address], [place] * HEPATITIS C ANTIBODY ([facility] ONLY) (06/24/2023 1:44 PM CDT) HEPATITIS C AB NON-REACTI VE NON-REACT LYNNE 06/24/2023 9:45 PM CDT [facility] Comment: ANTIBODIES TO HCV NOT DETECTED. DOES NOT EXCLUDE THE POSSIBILITY OF EXPOSURE TO HCV. 06/24/2023 1:44 PM CDT Femi Christina DO LABORATORY Final Re sult [facility] [address] [place] [address], [phone] * COLONOSCOPY GENERIC (11/26/2018) 11/26/2018 us [facility] Scanned SCANNING Final Resu lt from Last 3 Months or Most Recently Relevant to Health Maintenance Insurance Care Teams Hospital Clinic Assistant Relationship Specialty Start Date End Date Femi Christina DO [facility] [place] [address] PCP - General FAMILY PRACTICE 07/28/19
--- OUTSIDE RECORDS SUMMARY | 2025-09-17 18:48 | XMS_ITS | Encounter Summary ---
Author Organization [facility] Address [address] [place] [address] Care Team Providers Care Crusher Tender Name Role Phone Femi Christina DO Primary Care Provider + Encounter Details Date Type Department Care Team (Late Contact Info) Description 01/04/[address] [employer] Message Enc [facility] Family & Internal [place] [phone] [place] [phone] Femi Christina DO [facility] [place], [place] [phone] Question Social History Tobacco Use Types Packs/Day [...] PM CDT Legal Sex Female 11:28 AM HOSPITAL INSURANCE CLERK Gender Identity Female 02/08/2025 3:21 PM CDT Sexual Orientation Not on file documented as of this encounter Plan of Treatment Upcoming Encounters Date Type Department Care Team (Late st Contact Info) Description 02/27/2026 9:00 AM CDT Office Visit [facility] Family & Internal Medicine - [address] [phone] Femi Christina DO [address] [place] [address] documented as of this encounter Visit Diagnoses Not on filedocumented in this encounter Additional Health Concerns Assessment Noted Time PHQ-9 Depression Total Score: 2 09/29/19 20 10:29 AM HOSPITAL INSURANCE CLERK documented as of this encounter Care Teams Crusher Tender Relationship Specialty Start Date End Date Femi Christina DO [address] [place] [address] PCP - General FAMILY PRACTICE 07/28/19 documented as of this encounter
--- OUTSIDE RECORDS SUMMARY | 2025-09-17 18:48 | XMS_ITS | Encounter Summary ---
Author Organization [facility] Address [address] [place] [address] Care Team Providers Care Record Center Coordinator Name Role Phone Femi Christina DO Primary Care Provider + Encounter Details Date Type Department Care Team (Late st Contact Info) Description 04/24/2021 tok tok tokhart Message Enc [facility] Family & Internal Medicine [facility] [address] [place] [address] Femi Christina DO [address] [place], [place] [phone] RE: Question Social History Tobacco Use Types [...] PM CDT Legal Sex Female 11:28 AM REGULATORY SPECIALIST Gender Identity Female 02/08/2025 3:21 PM [...] Description 02/27/2026 9:00 AM CDT Office Visit [facility] Family & Internal Medicine [address] [address] Femi Christina DO [address] [place] [address] documented as of this encounter Visit Diagnoses Not on filedocumented in this encounter Additional Health Concerns Assessment Noted Time PHQ-9 Depression Total Score: 0 04/04/20 21 9:33 AM CDT documented as of this encounter Care Teams Record Center Coordinator Relationship Specialty Start Date End Date Femi Christina DO [address] [place] [address] PCP - General FAMILY PRACTICE 07/28/19 documented as of this encounter
--- OUTSIDE RECORDS SUMMARY | 2025-09-17 18:48 | XMS_ITS | Encounter Summary ---
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 Gender Identity Female 02/08/2025 3:21 PM CDT Sexual Orientation Not on file 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 Not on file Not on file documented as of this encounter Plan of Treatment Upcoming Encounters Date Type Department Care Team (Late st Contact Info) Description 02/27/2026 9:00 AM CDT Office Visit [facility] Family & Internal Medicine - [address] [phone] Femi Christina DO [address] [place] [address] documented as of this encounter Visit Diagnoses Not on filedocumented in this encounter Additional Health Concerns Assessment Noted Time PHQ-9 Depression Total Score: 0 04/04/20 21 9:33 AM CDT documented as of this encounter Care Teams Importer Exporter Relationship Specialty Start Date End Date Femi Christina DO [address] [place] [address] PCP - General FAMILY PRACTICE 07/28/19 documented as of this encounter
--- OUTSIDE RECORDS SUMMARY | 2025-09-17 18:48 | XMS_ITS | Encounter Summary ---
Author Organization [facility] Address [address] [place] [address] Care Team Providers Care Back End Web Developer Name Role Phone Femi Christina Bing CASE Primary Care Provider + Encounter Details Date Type Department Care Team (Late Contact Info) Description 09/11/2025 [place] Message Enc [facility] Medical [facility] Multispecialty Care - [address], [address] [place] [address] [place], 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 Not on file Not on file documented as of this encounter Plan of Treatment Upcoming Encounters Date Type Department Care Team (Late Contact Info) Description 02/27/2026 9:00 AM CDT Office Visit [facility] Medical [facility] Family & Internal Medicine - [place] [address] [place] [address] Femi Christina DO [address] [place] [address] documented as of this encounter Visit Diagnoses Not on filedocumented in this encounter Additional Health Concerns Assessment Noted Time PHQ-9 Depression Total Score: 0 11/05/19 23 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
--- OUTSIDE RECORDS SUMMARY | 2025-09-17 18:48 | XMS_ITS | Clinical Summary ---
Author Organization [email or web address] Address [address] [place] [address] Care Team Providers Care Upholstery Sewer Name Role Phone Juan Antonio Elliott MD Primary Care Provider [phone] Source Comments [email or web address],non-owned Affiliates and Associated Physician Practices is amultiple site organization consisting of ambulatory clinics and hospital sitesin [place], [place], [place] and [place]. This disclosure is being madepursuant to the Care Everywhere program and may not contain all information available regarding this patient. Last updated 18.[email or web address] Allergies Active Allergy Reactions Criticality Noted Date Comments Penicillins Rash,Nausea and/or Vomiting Medium 017 Medications * Be aware that medications may not be up to date on this document. Alwaysverify current medications with the patient. OMEPRAZOLE PO Take 40 mg by mouth once daily Active sertraline (ZOLOFT) 100 MG tablet Take 100 mg by mouth once daily Active Insulin Glargine (BASAGLAR KWIKPEN SC) Active HYDROCHLOROTHI AZIDE PO Active Dulaglutide (TRULICITY SC) Inject subcutaneously every 7 days Active glimepiride (AMARYL) 4 MG tablet Take 4 mg by mouth as needed 8 Active nortriptyline (PAMELOR) 10 MG capsule Take 3 po QHS 7 Active losartan (COZAAR) 25 MG tablet Take 25 mg by mouth once daily 09/15/201 7 Active lovastatin (MEVACOR) 20 MG tablet 40 mg once daily 7 Active Apremilast (OTEZLA PO) Active Active Problems No known active problems Family History Medical History Relation Name Comments Cancer - Skin, Non Melanoma Father Cancer - Breast Mother Diabetes - Type 1 Other cousin cousins X 3 CAD (Coronary Artery Disease) Paternal Grandfather Cancer - Other Paternal Grandfather Relation Name Status Comments Father Mother Other cousin Alive Paternal Grandfather Social History Tobacco Use Types Packs/Day Years Used Date Smoking Tobacco: Former Cigarettes 0 Q uit: 09/21/2014 Smokeless Tobacco: Never Alcohol Use Standard Drinks/Week Comments No 0 (1 standard drink = 0.6 oz pur e alcohol) Comments No Sex and Gender Information Value Date Recorded Sex Assigned at Not on file Legal Sex Female 8:31 AM CDT Gender Identity Not on file Sexual Orientation Not on file Last Filed Vital Signs Vital Sign Reading Time Taken Comments Blood Pressure 126/82 02/03/2017 5:25 PM CDT Pulse 82 02/03/2017 5:25 PM CDT Temperature 36.7 C (98.1 F) 02/03/2017 5:25 PM CDT Respiratory Rate 16 02/03/2017 5:25 PM CDT Oxygen Saturation 94% 02/03/2017 5:25 PM CDT Inhaled Oxygen Concentration - - Weight 98.4 kg (217 lb) 12/24/2018 7:34 AM CDT Height 160 cm (5' 3) 12/24/2018 7:34 AM CDT Body Mass Index 38.44 12/24/2018 7:34 AM CDT Plan of Treatment Health Maintenance Due Date Last Done Comments COLOGUARD (AGES 45-75) - COL ON CA SCREENING 1967 COLON MONITORING 1967 COLONOSCOPY - COLON CA SCREENING 1967 CT COLONOGRAPHY - COLON CA SCREENING 1967 Colorectal Cancer Screening 1967 FIT - COLON CA SCREENING 1967 FLEX SIG - COLON CA SCREENING 1967 MAMMOGRAM 1967 HIV SCREENING 1982 HEPATITIS C SCREENING 09/02/1985 DTAP/TDAP/TD VACCINES (1 - Tdap) 1986 HEPATITIS B VACCINE (1 of 3 - 19+ 3-dose series) 1986 PNEUMOCOCCAL VACCINE 50+ (1 of 1 - PCV) 2017 ZOSTER VACCINE (1 of 2) 2017 DEPRESSION SCREENING 09/21/2024 COVID-19 VACCINE (1 - 2024-2 6 season) 2025 INFLUENZA VACCINE (#1) 2025 HIB VACCINE Aged Out No longer eligi ble based on patient's age to complete this topic HPV VACCINE Aged Out No longer eligi ble based on patient's age to complete this topic MENINGOCOCCAL (Group B) VACC INE SHARED DECISION-MAKING Aged Out No longer eligibl e based on patient's age to complete this topic MENINGOCOCCAL GROUPS A/C/Y/W VACCINE Aged Out No longer eligible b ased on patient's age to complete this topic [place] [address] Care Teams Upholstery Sewer Relationship Specialty Start Date End Date Juan Antonio Elliott MD [address] [place] [address] PCP - General Family Medicine 12/24/18
[2025-09-17 19:10] LABS: EDCOVIDSCREEN Negative (Negative); EDINFLUASCREEN Negative (Negative); EDINFLUBSCREEN Negative (Negative)
--- NOTE | 2025-09-17 19:16 | ED_ITS ---
HPI - URI/Sore Throat General Chief Complaint: Upper Respiratory Infection Stated Complaint: achey/headache/fever/cough Time Seen by Provider: 09/17/25 19:00 Source: patient and RN notes reviewed Mode of arrival: ambulatory Limitations: no limitations History of Present Illness HPI Narrative: 60-year-old female presents Express Care complaining of upper respiratory symptoms for approximately 4 days. Patient reports cough, congestion, body aches, chills, fevers. Patient reports a productive cough. Patient took a COVID test at home that was negative. Patient denies any chest pain, difficulty breathing, nausea, vomiting, diarrhea, or any other symptoms. Patient has been taking Tylenol to help with symptoms. Patient reports a history of diabetes. Related Data Home Medications ?Medication ?Instructions ?Recorded ?Confirmed ?Last Taken ?Type adalimumab 40 mg/0.8 mL mg subcut 09/17/25 Unknown History subcutaneous pen kit (Humira Pen) atorvastatin 80 mg tablet mg 09/17/25 Unknown History blood-glucose sensor (FreeStyle 09/17/25 09/17/25 Unk nown History Alis 3 Plus Sensor device) empagliflozin 25 mg tablet mg 09/17/25 Unknown Histor y (Jardiance) glimepiride 4 mg tablet mg 09/17/25 Unknown History hydrochlorothiazide 25 mg tablet mg 09/17/25 Unknown History insulin degludec 200 unit/mL (3 unit subcut 09/17/25 Unknown History mL) subcutaneous pen insulin lispro 100 unit/mL subcut 09/17/25 Unknown Hi story subcutaneous pen (Humalog KwikPen (U-100) Insulin) losartan 25 mg tablet mg 09/17/25 Unknown History omeprazole 40 mg capsule,delayed mg 09/17/25 Unknown History release sertraline 100 mg tablet mg 09/17/25 Unknown History Allergies Allergy/AdvReac Type Severity Reaction Status Date / Time Penicillins Allergy Unknown Vomiting Verified 09/17/25 18:54 Review of Systems Review of Systems: CONSTITUTIONAL: Positive for fever, body aches, chills. Negative for sweats. EYES: Denies visual changes, redness, or discharge. ENT: Denies rhinorrhea, congestion, sore throat, or otalgia. Positive for congestion. CARDIOVASCULAR: Denies chest pain, palpitations, or edema. RESPIRATORY: Positive for cough. Negative for wheezing Or dyspnea. GASTROINTESTINAL: Denies abdominal pain, nausea, vomiting, or diarrhea. GENITOURINARY: Denies dysuria or hematuria. SKIN: Denies rash or itching. MUSCULOSKELETAL: Denies back pain, joint pain, or myalgia. NEUROLOGIC: Denies headache, numbness, or weakness. PSYCHIATRIC: Denies anxiety or depression. All other systems reviewed are negative, except as documented in HPI. [facility] Family History Family History Mother Family history of malignant neoplasm of breast in first degree relative Other Family history of malignant neoplasm of ovary Social History Social History Smoking status: Former smoker Smoking end date: 09/21/13 Alcohol intake: never Comments At the time of my signature, I reviewed and agree with the nursing past medical, surgical, social, and family history. There is no relevant family history pertinent to the patient complaint. Exam Narrative: GENERAL: This is a well-nourished, well-developed adult, in no apparent distress. They are non ill-appearing, nontoxic appearing. HEAD: normocephalic, atraumatic. EYES: Sclera clear/white. Conjunctiva normal. Vision is grossly intact. Extraocular movements intact EARS: External ears normal, auditory canals clear and without drainage, TMs normal without perforation. Hearing grossly intact. NOSE: External nose normal with no obvious nasal discharge, nasal turbinates erythematous, no rhinorrhea. THROAT: Mucous membranes moist, posterior pharynx erythematous with PND. Uvula midline. NECK: Neck supple, non-tender without lymphadenopathy, masses or thyromegaly. CARDIOVASCULAR: Regular rate and rhythm without murmurs, gallops, or rubs. RESPIRATORY: Clear to auscultation. Breath sounds equal bilaterally. No wheezes, rales, or rhonchi. SKIN: warm, Dry, intact with no suspicious lesions or rash, good texture and turgor. NEURO: awake, alert, and oriented to person, place and time. There were no obvious focal neurologic abnormalities. EXTREMITIES: No joint tenderness, effusion, or edema noted. BACK: Nontender without deformity. Course Course Level of Care: Express Care Visit Vital Signs Vital signs: Vital Signs Temperature 99.1 F 09/17/25 18:48 Pulse Rate 88 09/17/25 18:48 Respiratory Rate 16 09/17/25 18:48 Blood Pressure 133/78 09/17/25 18:48 Pulse Oximetry 95 09/17/25 18:48 Oxygen Delivery Room Air 09/17/25 18:48 Temperature 99.1 F 09/17/25 18:48 Pulse Rate 88 09/17/25 18:48 Respiratory Rate 16 09/17/25 18:48 Blood Pressure 133/78 09/17/25 18:48 Pulse Oximetry 95 09/17/25 18:48 Oxygen Delivery Room Air 09/17/25 18:48 MDM MDM Narrative Medical decision making narrative: Rapid COVID and flu were negative. Symptoms likely viral etiology. Nontoxic a ppearing, no apparent distress. Discussed supportive care. Will send patient home with benzonatate tablets. Discussed physical exam findings. Advised supportive measures and signs/symptoms to go to the ER. Pt is appropriate for outpt treatment and f/u. Differential Diagnosis Differential Diagnosis: Differential diagnostic considerations for upper respiratory infection include upper respiratory infection, croup, otitis media, sinusitis, viral infection, bronchitis, influenza, pharyngitis, strep, uvulitis. Lab Data Labs: Lab Results 09/17/25 Range/Units 19:09 POC Influenza A Ag Negative (Negative) POC Influenza B Ag Negative (Negative) POC SARS CoV-2 Ag Negative (Negative) Critical Care Time Critical Care Time Critical Care Time: No Discharge Plan Discharge Clinical Impression: Upper respiratory infection Qualifiers: URI type: unspecified viral URI Qualified Code(s): J06.9 - Acute upper respiratory infection, unspecified Patient Disposition: Home Condition: Stable Instructions: Antibiotic Form, Upper Respiratory Infection (ED) Additional Instructions: Viral illness may last between 7-10 days; antibiotics do not cure viral illness and are NOT recommended at this time. Recommend antihistamine Zyrtec or Claritin for congestion. Take benzonatate tablets as needed for cough. Warm tsp of honey bee for bed is also beneficial for the cough. Also, recommend symptomatic treatment includes: rest, fluids, and increase humidity of the air at home. Tylenol or Motrin as needed for pain or fevers. Follow instructions on the bottle. Please schedule a follow-up visit with your personal physician for further evaluation and treatment within 3-5days. If he develops difficulty breathing, unable to talk in full sentences, rapid breathing, chest pains, vomiting, weakness, confusion, or any serious concerns please go to the ER immediately. Patient Language: Swedish Prescriptions: New benzonatate 200 mg capsule 200 mg PO TID PRN (Reason: cough) Qty: 20 0RF No Action atorvastatin 80 mg tablet sertraline 100 mg tablet omeprazole 40 mg capsule,delayed release(DR/EC) glimepiride 4 mg tablet losartan 25 mg tablet hydrochlorothiazide 25 mg tablet insulin lispro [Humalog KwikPen Insulin] 100 unit/mL insulin pen SUBCUT Humira Pen 40 mg/0.8 mL pen injector kit SUBCUT (DME) FreeStyle Alis 3 Plus Sensor Device MISCELLANEOUS insulin degludec 200 unit/mL (3 mL) insulin pen SUBCUT Jardiance 25 mg tablet Follow-up/Referrals: Carri,DO Femi [Primary Care Provider] Stand Alone Forms: Work/School Release IP Time of Disposition: 19:14
== END 2025-09-17 19:19 | disposition home or self-care (01) ==
PROVIDERS: PCP Student in an Organized Health Care Education/Training Program
DX: J06.9 Acute upper respiratory infection, unspecified (principal)
CPT/HCPCS: 87426; 87804; 99213; G0463